=== PATIENT | male | born 1995 | race Caucasian/White ===

== ENCOUNTER 2018-04-02 05:25 | Emergency (ER) | payer OTHER ==
--- NOTE | 2018-04-02 05:34 | EDPHY ---
H & P Source: Patient, EMS Time Seen by Provider: 04/02/18 05:33 HPI/ROS: HPI CHIEF COMPLAINT: Alcohol intoxication, head trauma, fall. HISTORY OF PRESENT ILLNESS: 23-year-old male presents emergency room with acute alcohol intoxication a fall earlier tonight. He sustained a left forehead hematoma and left maxillary hematoma with abrasions. He arrives to the emergency room by EMS in a cervical collar. GCS of 15 but smells of alcohol slurring his speech. Past Medical History: Denies Past Surgical History: Denies Social History: Alcohol this evening. Admits to a Large amount. Family History: Noncontributory ROS REVIEW OF SYSTEMS: 10 Systems were reviewed and negative with the exception of the elements mentioned in the history of present illness. Exam Constitutional intoxicated, smells of alcohol triage nursing summary reviewed, vital signs reviewed, awake/alert. Eyes normal conjunctivae and sclera, EOMI, PERRLA. HENT head and neck: Left forehead hematoma, left maxillary abrasion and hematoma, no laceration, cervical spine no midline cervical spine pain or step- offs or crepitus, in rigid cervical collar, moist mucus membranes, no epistaxis , neck supple/ no meningismus, no raccoon eyes. Respiratory clear to auscultation bilaterally, normal breath sounds, no respiratory distress, no wheezing. Cardiovascular rate normal, regular rhythm, no murmur, no edema, distal pulses normal. Gastrointestinal soft, non-tender, no rebound, no guarding, normal bowel sounds, no distension, no pulsatile mass. Genitourinary no CVA tenderness. Musculoskeletal no midline vertebral tenderness, full range of motion, no calf swelling, no tenderness of extremities, no meningismus, good pulses, neurovascularly intact. Skin pink, warm, & dry, no rash, skin atraumatic. Neurologic awake, alert and oriented x 3, AAOx3, moves all 4 extremities equally, motor intact, sensory intact, CN II-XII intact, normal cerebellar, normal vision, normal speech. Psychiatric normal mood/affect. Heme/Lymph/Immune no lymphadenopathy. Differential Diagnosis: Includes but is not limited to in a particular order acute alcohol intoxication, closed head injury, intracranial bleed, skull fracture, cervical spine injury, facial fracture Medical Decision Making: Plan for this patient breath alcohol, CT scan head without contrast CT cervical spine without contrast for trauma re-evaluate. Re-evaluation: Breath alcohol 222. CT scan head without contrast and CT cervical spine without contrast negative for acute traumatic injury called to me by Dr. Miles. 0719: Patient re-evaluated this time needs more time for sobriety. CT scans head and neck are negative. Patient needs more time for sobriety signed over to Dr. Adkins at 7:00 a.m.. ( Duncan Lujan) Constitutional: Initial Vital Signs Temperature (C) 36.3 C 04/02/18 05:32 Heart Rate 107 H 04/02/18 05:32 Respiratory Rate 18 04/02/18 05:32 Blood Pressure 150/100 H 04/02/18 05:32 O2 Sat (%) 93 04/02/18 05:32 O2 Delivery Mode Room Air Allergies/Adverse Reactions: No Known Allergies Allergy (Unverified 04/02/18 05:34) Home Medications: Medication Instructions Recorded NK [No Known Home Meds] 04/02/18 Departure - Departure Disposition: Home, Routine, Self-Care Clinical Impression: Facial hematoma Alcoholic intoxication Qualifiers: Complication of substance-induced condition: uncomplicated Qualified Code(s): F10.920 - Alcohol use, unspecified with intoxication, uncomplicated Condition: Good Instructions: Alcohol Intoxication (ED), Abuse of Alcohol (ED), Hematoma (ED) Referrals: Patient,NotPresent [Primary Care Provider] - As per Instructions
[2018-04-02 10:05] VITALS: BP 101/78
== END 2018-04-02 10:12 | disposition home or self-care (01) ==
LOC: EDUNIT#
DX: S00.81XA Abrasion of other part of head, initial encounter (principal); S00.83XA Contusion of other part of head, initial encounter; F10.920 Alcohol use, unspecified with intoxication, uncomplicated; W19.XXXA Unspecified fall, initial encounter; Y92.9 Unspecified place or not applicable; Y93.9 Activity, unspecified; Y99.9 Unspecified external cause status